=== PATIENT | female | born 1960 | race Caucasian/White ===

== ENCOUNTER 2020-11-14 06:48 | Emergency (ER) | payer OTHER ==
[2020-11-14 08:06] LABS: RED BLOOD COUNT 4.42 M/UL (4.00-5.10); WHITE BLOOD COUNT 9.8 K/UL (4.5-11.0)
[2020-11-14 09:01] LABS: BUN/CREATININE RATIO 16 (0-10)
== END 2020-11-14 10:22 | disposition home or self-care (01) ==
LOC: ER1 06:48
DX: R07.2 Precordial pain (principal)
CPT/HCPCS: 71045; 80053; 82550; 82553; 83874; 83880; 84484; 85025; 93005; 99285